=== PATIENT | female | born 1995 | race Caucasian/White ===

== ENCOUNTER 2025-03-07 15:20 | Emergency (ER) | payer BC, SELFPAY ==
[2025-03-07 15:24] VITALS: BP 162/109
[2025-03-07 15:53] LABS: Hematocrit 43.6 % (37.0-47.0); Hemoglobin 13.5 g/dL (12.0-16.0); Mean Corp Hgb Conc. 31.0 g/dL (33.0-37.0); Mean Corpuscular Volume 85.2 fL (81.0-99.0); Nucleated Red Blood Cells % 0 %; Platelet Count 333 10^3/uL (130-400); Red Cell Dist. Width 14.0 % (11.5-14.5)
[2025-03-07 16:08] LABS: ALT (SGPT) 58 U/L (0-35); AST (SGOT) 36 U/L (14-36); Albumin 4.8 g/dl (3.5-5.0); Alkaline Phosphatase 84 U/L (38-126); Blood Urea Nitrogen 11 mg/dl (7-17); Calcium 10.1 mg/dl (8.4-10.2); Carbon Dioxide 25 mmol/L (22-30); Chloride 103 mmol/L (98-107); Glucose 102 mg/dl (70-99); Potassium 4.2 mmol/L (3.5-5.1); Sodium 138 mmol/L (135-145); Total Protein 7.6 g/dl (6.3-8.2); eGFR > 60.00
[2025-03-07 16:21] LABS: Troponin I < 0.012 ng/ml
[2025-03-07 19:00] VITALS: BP 122/76
[2025-03-07 19:01] LABS: D-Dimer 0.42 ug/mlFEU (0.00-0.50)
--- NOTE | 2025-03-07 19:27 | ED.GENMED ---
History of Present Illness
General
Chief Complaint: Chest Pain
Time Seen by Provider: 03/07/25 17:09
History of Present Illness
History of Present Illness:
Note:
CHIEF COMPLAINT(S)
Chest pressure
HISTORY OF PRESENT ILLNESS
A 29-year-old female presents with chest pressure that started approximately five hours ago around midnight. The patient describes the sensation as feeling like 'an elephant' sitting on the chest, with both fingers feeling numb. The discomfort is
persistent but has not worsened significantly. Breathing does not exacerbate or alleviate the symptoms. The patient reports intermittent abdominal discomfort, typically postprandial, which she attributes to dietary intake. The patient experiences
finger numbness while sleeping but is unsure if it is related to the current episode. Positional changes, such as sitting up, provide some relief. 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 She denies any leg
tenderness or cramps.
PAST MEDICAL AND SURIGICAL HISTORY
No known past medical conditions.
SOCIAL HISTORY
The patient reports social alcohol use and recent smoking. She states that she quit 5 days ago
MEDICATIONS
The patient denies any current medications.
REVIEW OF SYSTEMS
- Cardiovascular: Persistent chest pressure.
- Neurological: Finger numbness on both hands.
- Respiratory: Breathing does not affect chest pressure.
- Gastrointestinal: Postprandial abdominal discomfort.
- Musculoskeletal: No leg or calf tenderness.
PHYSICAL EXAM
General: Alert, no acute distress. Resting comfortably
Skin: Warm, dry.
Head: Normocephalic, atraumatic.
Neck: Supple, trachea midline.
Eye Ears, Nose, Mouth, and Throat: Oral mucosa moist.
Cardiovascular: Normal peripheral perfusion, No edema.
Respiratory: Respirations are non-labored.
Gastrointestinal : Abdomen nondistended.
Back: Normal range of motion, Normal alignment.
Musculoskeletal: Normal range of motion, normal strength.
Neurological: Alert and oriented to person, place, time, and situation, No focal neurological deficit observed.
Psychiatric: Cooperative, appropriate mood & affect.
PLAN
- Perform blood work to assess for possible blood clot.-D-dimer is negative
- Consider a CT scan of the chest if blood test results are suggestive of a clot.
- Evaluate for potential .
- The EKG shows normal sinus rhythm with a rate of 83 beats per minute, normal intervals, and no evidence of ischemia; interpretation is normal.
�Chest x-ray is normal
DIFFERENTIAL DIAGNOSIS
The Differential Diagnosis includes, in no particular order and is not limited to:
1. Gastroesophageal reflux disease
2. Acute coronary syndrome�unlikely
3. Pulmonary embolism�unlikely since Wellan score is negative and D-dimer negative
4. Costochondritis
5. Anxiety or panic attack
6. Musculoskeletal chest pain
7. Pericarditis
8. Pneumothorax
9. Esophageal spasm
10. Herpes zoster (pre-eruption)
Disposition:
SUMMARY OF ENCOUNTER
A 29-year-old female presented to the emergency department with complaints of chest pressure, described as an 'elephant sitting on the chest,' which began around five hours prior to arrival. The patient experienced numbness in both fingers. She has
no past medical history of cardiac conditions. Initial assessment included an EKG, which showed normal sinus rhythm, and two troponin tests, both of which were negative. The Wells criteria was applied and was negative for DVT, and the D-dimer test
was also negative, effectively ruling out a pulmonary embolism. A chest x-ray was performed and interpreted as normal. Based on the presentation and test results, a working diagnosis of gastroesophageal reflux disease (GERD) was considered.
DISPOSITION
Discharge
ASSESSMENT
The patients symptoms are most likely due to GERD, given the normal cardiac work-up and other negative test results.
PLAN
The patient is to be treated with pantoprazole for suspected GERD. She will follow up with her family doctor for further management and evaluation if symptoms persist or worsen.
INDEPENDENT REVIEW OF LABS AND INTERPRETATION OF TESTS
- My independent review of the EKG is normal, indicating normal sinus rhythm.
- My independent review of the D-dimer is negative.
- My independent review of the chest x-ray shows no abnormalities.
- My independent review of two troponin tests indicates negative results.
MEDICATION RECONCILIATION
- Pantoprazole prescribed for GERD.
MEDICAL DECISION MAKING
- Number and Complexity of Problems Addressed: Chronic conditions affecting care include GERD. Differential diagnosis considered includes gastroesophageal reflux disease, acute coronary syndrome (unlikely), pulmonary embolism (unlikely),
costochondritis, anxiety or panic attack, musculoskeletal chest pain, pericarditis, pneumothorax, esophageal spasm, and herpes zoster (pre-eruption).
- Data:
- Category 1:
- My independent interpretation of the EKG is normal.
- My independent review of two troponin tests is negative.
- My independent interpretation of the chest x-ray is normal.
- Risk:
Consideration of Admission/Observation: Escalation of care including admission/observation was considered given the complexity and risk of the patients presenting complaint. However, ultimately I feel the patient is safe for outpatient management
with close follow up. Reasoning includes reassuring work-up that does not reveal any acute life/organ-threatening processes, symptoms well controlled upon reevaluation, stable vitals, patient agreeable with discharge, and reliable for follow-up.
DIAGNOSIS
- Gastroesophageal Reflux Disease (GERD) (ICD-10: K21.9)
Phy Exam
Physical Exam
Physical Exam:
.
Scores
Heart Score for Chest Pain Patients
STEMI patient?: No
History: Slightly or Non-Suspicious
ECG: Normal
Age: </= 45 years
Risk Factors: No Risk Factors
Troponin: </= Normal Limit
Heart Score for Chest Pain Patients: 0
Heart Score Risk: 2.5% MACE over next 6 weeks
PE Wells Score
Symptoms of DVT: No
No alternative diagnosis better explains the illness: No
Tachycardia with pulse > 100: No
Immobilization (>=3 days) or surgery within previous 4 weeks: No
Prior history of DVT or pulmonary embolism: No
Presence of hemoptysis: No
Presence of malignancy: No
Pulmonary Embolism Risk Score: 0
Probability of PE: Pt is low risk
Course
Orders/Labs/Results
Orders:
Orders
03/07/25 15:21
EKG [Electrocardiogram (*1)] Urgent
Reason for Study: Chest Pain
03/07/25 15:22
EKG- Treatment ONCE
03/07/25 15:37
Complete Blood Count/With Diff Urgent
Comprehensive Metabolic Panel Urgent
Troponin I Urgent
03/07/25 17:52
Add On- LAB Urgent
Tests Added?: ddimer
03/07/25 18:37
D-Dimer Urgent
Comment: ADD ON PER BRANDY KAUR (TUBE NEEDS TO BE DRAWN)
03/07/25 19:27
CR Chest - 2 Views Urgent
Comment:
Reason For Exam: cp
03/07/25 19:28
Electrocardiogram (*1) Urgent
Reason for Study: Chest Pain
EKG- Treatment ONCE
03/07/25 19:40
Troponin I Urgent
03/07/25 20:39
Pantoprazole [Protonix] 20 mg PO NOW STA
Sucralfate Suspension [Carafate Suspension] 1 gm PO NOW STA
Abnormal Lab Results
03/07/25
15:37
WBC 11.6 H 10^3/uL
(4.8-10.8)
MCH 26.4 L pg
(27.0-31.0)
MCHC 31.0 L g/dL
(33.0-37.0)
MPV 10.6 H fL
(7.4-10.4)
Absolute Neuts (auto) 6.8 H 10^3/uL
(1.4-6.5)
Absolute Lymphs (auto) 3.8 H 10^3/uL
(1.2-3.4)
Absolute Monos (auto) 0.8 H 10^3/uL
(0.1-0.6)
Glucose 102 H mg/dl
(70-99)
ALT 58 H U/L
(0-35)
03/07/25 15:37
03/07/25 15:37
Vital Signs
Initial and Last Documented VS:
Initial Vital Signs
Temp Pulse Resp BP Pulse Ox
98.2 F 89 14 162/109 99
03/07/25 15:24 03/07/25 15:24 03/07/25 15:24 03/07/25 15:24 03/07/25 15:24
Last Documented Vital Signs
Temp Pulse Resp BP Pulse Ox
98.2 F 77 16 122/76 99
03/07/25 15:24 03/07/25 20:30 03/07/25 20:30 03/07/25 19:00 03/07/25 20:30
*Pulse Oximetry
SaO2: 98
Oxygen Mode of Delivery: Room air
Patient hypoxic: not evaluated
*Critical Care Note
Total Time (30-74mins, 75-104mins- exclusive of procedures): Not Applicable
ED Attending Note
-
Portions of this chart may have been created with voice recognition software.� Occasional wrong word or��sound alike� substitutions may have occurred due to the inherent limitations of voice recognition software.
Discharge Plan
Departure
Patient Disposition: Home (Routine Discharge)
Date of Disposition: 03/07/25
Time of Disposition: 20:31
Patient with high blood pressure during this ER visit?: Yes
Discharge Problem:
Chest pain
Instructions: Acid Reflux and GERD in Adults (DC), Chest Pain PCP Follow Up, BLOOD PRESSURE
Prescriptions:
New
pantoprazole [Protonix] 40 mg tablet,delayed release (DR/EC)
40 mg PO DAILY Qty: 14 0RF
sucralfate 100 mg/mL suspension
1 g PO BID Qty: 200 0RF
Referrals:
Mya Villalta DO [Family Provider, Family Practice]
Stand Alone Forms: Return to Work
Activity Restrictions/Additional Instructions:
Thank You for choosing [facility].
It was a pleasure meeting you and taking part in your care. We hope for your continued healing and wellness.
Please read discharge instructions in their entirety. However, they are for general education and may not describe your exact diagnosis at discharge. Information on your ER visit and medical conditions were discussed with you along with appropriate
follow up information...
If indicated, please take your medications as instructed and indicated on discharge paperwork.
Please schedule a follow up appointment as directed. Call to schedule an appointment
Please return to the emergency department with ANY change in, persisting, or worsening of symptoms. If any of your symptoms do not improve, or persist, or become more severe within 6-12 hours, please return to the emergency department for further
care.
Please return to the emergency department if you develop a headache, neck pain/stiffness, fever greater than 100.4F, chest pain, shortness of breath, persistent nausea, vomiting, slurred speech, difficulty walking, numbness/tingling, weakness, signs
of infection or any other symptoms that are worrisome to you.
If you have any questions or concerns please do not hesitate to call the Hospital at .
Interventions
Interventions:
*Risk Screen - Suicide Last Done: 03/07/25 15:24
*General Assessment Last Done: 03/07/25 15:24
*Neglect/Abuse Screening Last Done: 03/07/25 15:24
*ED- Fall Risk Assessment Last Done: 03/07/25 20:50
*ED COVID-19 Vaccine History Last Done: 03/07/25 15:24
*ED Influenza Vaccine History Last Done: 03/07/25 15:24
*Nursing Disposition Last Done: 03/07/25 20:50
ED- Cardiac Assessment Last Done: 03/07/25 18:38
Discharge Date and Time
Discharge Date/Time: 03/07/25 20:51
Print Language: SINHALA
[2025-03-07 20:10] LABS: Troponin I 0.012 ng/ml
[2025-03-07] MEDS: CARAFATE SUSPENSION 1 GM PO (20:46)
[2025-03-07] MEDS: PROTONIX 20 MG PO (20:46)
== END 2025-03-07 20:51 | disposition home or self-care (01) ==
LOC: EMR 15:20
PROVIDERS: Emergency Medicine; EMERGENCY PHYSICIAN Student in an Organized Health Care Education/Training Program; FAMILY PHYSICIAN Family Medicine
DX: R07.89 Other chest pain (principal); R20.0 Anesthesia of skin; K21.9 Gastro-esophageal reflux disease without esophagitis; Z87.891 Personal history of nicotine dependence
CPT/HCPCS: 99285; 71046; 80053; 84484; 85025; 85379; 93005